=== PATIENT | female | born 1985 | race African-American/Black ===

== ENCOUNTER 2017-04-07 09:07 | Emergency (ER) | payer MEDICAID, SELFPAY ==
[2017-04-07] MEDS ORDERED: Lidocaine 1% PF 5 ML VIAL ONE (09:35)
[2017-04-07] MEDS ORDERED: cefTRIAXone\\ROCEPHIN 500 MG VIAL ONE (10:06)
[2017-04-07] MEDS ORDERED: Clindamycin 150 MG CAP ONE (10:06)
== END 2017-04-07 10:29 | disposition home or self-care (01) ==
LOC: SCSER 09:07
DX: L02.416 Cutaneous abscess of left lower limb (principal); K50.90 Crohn's disease, unspecified, without complications; I10 Essential (primary) hypertension; F32.9 Major depressive disorder, single episode, unspecified; F41.9 Anxiety disorder, unspecified; Z79.899 Other long term (current) drug therapy
CPT/HCPCS: 10060; J0696; J2001

== ENCOUNTER 2018-07-25 13:42 | Emergency (ER) | payer OTHER | END 2018-07-25 14:00 | disposition home or self-care (01) | LOC: SCSER 13:42 | DX: J01.90 Acute sinusitis, unspecified (principal); F41.9 Anxiety disorder, unspecified; F32.9 Major depressive disorder, single episode, unspecified; Z79.899 Other long term (current) drug therapy | CPT/HCPCS: 99283 ==

== ENCOUNTER 2019-02-12 12:37 | Emergency (ER) | payer OTHER ==
[~2019-02-12 12:37] MED LIST: Iopamidol-370 76% 500 ML 1 ML ONE
[2019-02-12 13:44] LABS: #Basophils 0.1 thou/uL (0.0-0.2); #Eosinphils 0.1 thou/uL (0.0-0.7); #Lymphocytes 1.9 thou/uL (1.20-3.40); #Monocytes 0.6 thou/uL (0.11-0.59); #Neutrophils 4.1 thou/uL (1.40-6.50); %Basophils 0.8 % (0.0-1.0); %Eosinophils 1.7 % (0.0-10.0); %Lymphocytes 28.5 % (21.0-51.0); %Monocytes 8.5 % (0.0-10.0); %Neutrophils 60.5 % (42.0-75.0); Hemoglobin 12.3 g/dL (12.0-16.0); Mean Corpuscular HGB CONC 34.1 g/dL (32.0-36.0); Mean Corpuscular Volume 85.1 fL (78.0-98.0); Mean Platelet Volume 7.5 fL (7.4-10.4); Platelet Count 246 thou/uL (130-400); RBC Distribution Width 11.7 % (11.5-14.5); Red Blood Cell (RBC) Count 4.22 mill/uL (4.20-5.40); White Blood Cell (WBC) Count 6.8 thou/uL (4.8-10.8)
[2019-02-12] MEDS ORDERED: Morphine 4 MG/ML VIAL ONE (13:55)
[2019-02-12] MEDS ORDERED: Promethazine HCl 25 MG/ML VIAL ONE (13:56)
[2019-02-12 14:08] LABS: ALT (SGPT) 37 U/L (8-55); AST (SGOT) 20 U/L (5-34); Albumin 4.4 g/dL (3.5-5.0); Alkaline Phosphatase 82 U/L (40-110); Anion Gap 12 mmol/L (10-20); BUN (Urea Nitrogen) 12 mg/dL (7.0-18.7); Bilirubin, Total 0.3 mg/dL (0.2-1.2); Calc. Creatinine Clearance 0 mL/min (70-130); Calcium 9.3 mg/dL (7.8-10.44); Carbon Dioxide 25 mmol/L (22-29); Chloride 105 mmol/L (98-107); Estimated GFR-MDRD Greater than 90; Globulin 2.7 g/dL (2.4-3.5); Glucose 113 mg/dL (70-105); Lipase 13 U/L (8-78); Potassium 3.8 mmol/L (3.5-5.1); Protein, Total 7.1 g/dL (6.0-8.3); Sodium 138 mmol/L (136-145)
--- NOTE | 2019-02-12 15:19 | CT ---
CT abdomen and pelvis with IV contrast HISTORY: Abdominal pain. Rectal bleeding. COMPARISON: Multiple exams back to 03/08/2013. FINDINGS: Lung bases are clear. Within the medial dome of the liver, in the anterior segment right li [place] lobe, a lobular low-density lesion is 1.3 cm greatest oblique diameter on the axial images and shows subtle nodular enhancement along the posterior and superior margins. The lesions not reliably d emonstrated on prior CT exams. There are also more subtle lobular hyperdense lesions within the subdiaphragmatic portion of the left liver lobe, again not well seen on prior CT exams.. No free air or free fluid. No evidence of bowel obstruction. Appendix not inflamed. Uterus is surgically absent. Lobular soft tissue density structure at the expected location of the ri ght adnexa is favored to represent the ovary, as it is unchanged in appearance on CT scans back to 03/08/2013. IMPRESSION: No acute abnormalities to explain patient's symptoms. The lobular low-density lesion within the dome of the liver has some characteristics suggesting a hem angioma, although it cannot reliably be documented as stable. Its size and location are not amenable to tissue sampling. Please consider follow-up CT liver, employing a hemangioma protocol, in 6-8 months.
[2019-02-12 16:10] LABS: Bilirubin Negative (Negative); Blood, Urine Negative (Negative); Clarity Clear (Clear); Glucose, Urine (Dipstick) Normal (Negative); Leukocyte Negative Leu/uL (Negative); Nitrite Negative (Negative); Protein, Urine (Dipstick) Negative (Neg-Trace); Urobilinogen Normal mg/dL (Less than 2)
[2019-02-12] MEDS ORDERED: Pantoprazole 40 MG VIAL ONE (16:44)
== END 2019-02-12 16:53 | disposition home or self-care (01) ==
LOC: ERS 12:37
DX: K62.5 Hemorrhage of anus and rectum (principal); I10 Essential (primary) hypertension; F41.9 Anxiety disorder, unspecified; F32.9 Major depressive disorder, single episode, unspecified; K50.90 Crohn's disease, unspecified, without complications; D57.00 Hb-SS disease with crisis, unspecified
CPT/HCPCS: 36415; 74177; 80053; 81003; 82274; 83690; 85025; 94760; 96374; 96375; C9113; J2270; J2550; Q9967

== ENCOUNTER 2019-05-11 14:17 | Outpatient (CLI) | payer OTHER ==
[2019-05-11] MEDS ORDERED: Magnevist 469MG/ML 20 ML VIAL ONE (15:40)
--- NOTE | 2019-05-11 16:16 | MRI ---
MRI ABDOMEN WITH AND WITHOUT CONTRAST: 05/11/19 HISTORY: Hepatic mass. COMPARISON: Numerous prior examinations of the abdomen and pelvis. FINDINGS: No pleural effusion. No pericardial effusion. The spleen is not significantly enlarged. No hydronephr osis. Within the dome of the liver is an 11 mm mass, hepatic segment VIII with peripheral centripetal enhancement and puddling, indicative of a hemangioma. There is also a small 4-5 mm T2 hyperintense m ass, hepatic segment with flash enhancement indicating hemangioma. Spleen is unremarkable as well as the pancreas. The adrenal glands are unremarkable. No hydronephrosi s. There is no intrahepatic or extrahepatic biliary dilatation. No choledocholithiasis. Gallbladder i s normal. IMPRESSION: 1. Corresponding to the hepatic segment VIII mass in the dome is a small hemangioma. 2. 4-5 mm hemangioma hepatic segment . 3. No acute inflammatory process of the abdomen. POS: [facility]
== END 2019-05-11 14:18 | disposition home or self-care (01) ==
LOC: BICMRI 14:17
PROVIDERS: ATTEND Internal Medicine Gastroenterology
DX: K76.9 Liver disease, unspecified (principal); D18.03 Hemangioma of intra-abdominal structures
CPT/HCPCS: 74183; 82565; A9579

== ENCOUNTER 2023-09-25 06:38 | Emergency (ER) | payer OTHER ==
[2023-09-25] MEDS ORDERED: Diazepam 5 MG TAB ONE (07:37)
[2023-09-25] MEDS ORDERED: Ketorolac Tromethamine 30 MG (1 mL) VIAL ONE (07:37)
== END 2023-09-25 09:06 | disposition home or self-care (01) ==
LOC: ERS 06:38
DX: S16.1XXA Strain of muscle, fascia and tendon at neck level, initial encounter (principal); I10 Essential (primary) hypertension; K58.9 Irritable bowel syndrome, unspecified; W20.8XXA Other cause of strike by thrown, projected or falling object, initial encounter; Z79.899 Other long term (current) drug therapy
CPT/HCPCS: 72125; 96372; J1885

== ENCOUNTER 2024-10-12 18:06 | Emergency (ER) | payer OTHER ==
[2024-10-12] MEDS ORDERED: Ketorolac Tromethamine 30 MG (1 mL) VIAL ONE (19:17)
[2024-10-12] MEDS ORDERED: Orphenadrine Citrate 100 MG ER.TAB ONE (19:17)
== END 2024-10-12 20:47 | disposition home or self-care (01) ==
LOC: ERS 18:06
DX: S33.5XXA Sprain of ligaments of lumbar spine, initial encounter (principal); I10 Essential (primary) hypertension; V49.40XA Driver injured in collision with unspecified motor vehicles in traffic accident, initial encounter; Y92.410 Unspecified street and highway as the place of occurrence of the external cause
CPT/HCPCS: 72131; 96372; J1885; J2270